=== PATIENT | male | born 1970 | race Caucasian/White ===

== ENCOUNTER 2021-04-04 14:56 | Emergency (ER) | payer OTHER ==
[~2021-04-04] VITALS: Ht 175.3 cm; Wt 47.2 kg
--- NOTE | 2021-04-04 15:22 | NUR ---
CALLED [facility] FOR TRANSPORT ETA 45MINS
[2021-04-04] MEDS ORDERED: DIATR MEGLU/DIATRIZOATE SODIUM 120 ML BOTTLE (GASTROGRAPHIN) PO ONE (15:30)
[2021-04-04] MEDS ORDERED: DIATR MEGLU/DIATRIZOATE SODIUM 30 ML BOTTLE (GASTROGRAPHIN) ONE (15:36)
--- NOTE | 2021-04-04 15:42 | NUR ---
[facility] AT BEDSIDE FOR ABDOMINAL XRAY S/P G TUBE INSERTION.
--- NOTE | 2021-04-04 16:28 | NUR ---
CALLED [facility] FOR TRANSPORT THEY WILL BE HERE IN 5 MINS.
[2021-04-04 16:51] VITALS: BP 148/72
--- NOTE | 2021-04-04 16:51 | NUR ---
TRANSPORTED BACK TO [facility]. STABLE CONDITION.
== END 2021-04-04 16:52 ==
LOC: ER 15:06
DX: K94.20 Gastrostomy complication, unspecified (principal); G93.41 Metabolic encephalopathy; F20.9 Schizophrenia, unspecified; Z86.73 Personal history of transient ischemic attack (TIA), and cerebral infarction without residual deficits
CPT/HCPCS: 43762; 74018; 99284; Q9963 ×2